=== PATIENT | female | born 1975 | race Caucasian/White ===

== ENCOUNTER 2018-09-21 22:08 | Emergency (ER) | payer BC ==
[~2018-09-21] VITALS: Ht 152.4 cm; Wt 64.0 kg
[2018-09-21 22:23] VITALS: BP 123/82; Ht 152.4 cm; Wt 64.0 kg
== END 2018-09-21 22:46 | disposition home or self-care (01) ==
LOC: ED 22:08
DX: J06.9 Acute upper respiratory infection, unspecified (principal)